=== PATIENT | male | born 1990 | race American Indian/Alaskan Native ===

== ENCOUNTER 2021-10-23 18:06 | Emergency (ER) | payer BC ==
--- NOTE | 2021-10-23 22:24 | XRay Report ---
RIGHT ANKLE 3 VIEW(S) INDICATION / CLINICAL INFORMATION: right ankle pain COMPARISON: None available. FINDINGS: BONES / JOINT(S): Oblique, minimally displaced fracture involving the distal fibula/lateral malleolus . Mild widening of the medial clear space which measures approximately 6 mm. No significant arthritis . SOFT TISSUES: Significant soft tissue swelling about the ankle joint, most prominently overlying the lateral malleolus. ADDITIONAL FINDINGS: None. Report dictated by: Yaakov Jackson MD Report dictated on: 10/23/2021 9:18 PM I have reviewed the images, agree with this report, and edited this report as needed. Signer Name: Yaakov Jackson MD Signed: 10/23/2021 10:20 PM Workstation Name: [id number]
[2021-10-23] MEDS ORDERED: HYDROcodone/ACETAMINOPHEN 5-325 MG TAB PO ONE (22:33)
--- NOTE | 2021-10-23 22:38 | Emergency Department Report ---
ED Lower Extremity HPI - General Chief Complaint: Extremity Injury, Lower Stated Complaint: ANKLE SPRAIN Time Seen by Provider: 10/23/21 22:29 Source: patient Mode of arrival: Ambulatory Limitations: No Limitations - History of Present Illness Initial Comments: right ankle pain styarted today , fell in the kitchen after spraying some lyson, twisted backwards no bleeding no wounds MD Complaint: ankle injury, fall -: Sudden, hour(s) Injury: Ankle: Right Type of Injury: hyperextension Place: home Severity scale (0 -10): 7 Improves With: nothing, immobilization Worsens With: weight bearing, movement Context: fall - Related Data Allergies Allergy/AdvReac Type Severity Reaction Status Date / Time Penicillins Allergy Rash Verified 10/23/21 21:43 ED Review of Systems ROS: Stated complaint: ANKLE SPRAIN Other details as noted in HPI Constitutional: denies: chills, fever Eyes: denies: eye pain, eye discharge, vision change ENT: denies: ear pain, throat pain Respiratory: denies: cough, shortness of breath, wheezing Cardiovascular: denies: chest pain, palpitations Endocrine: no symptoms reported Gastrointestinal: denies: abdominal pain, nausea, diarrhea Genitourinary: denies: urgency, dysuria Musculoskeletal: denies: back pain, joint swelling, arthralgia Skin: denies: rash, lesions Neurological: denies: headache, weakness, paresthesias Psychiatric: denies: anxiety, depression Hematological/Lymphatic: denies: easy bleeding, easy bruising ED Past Medical Hx - Past Medical History Previous Medical History?: Yes Hx Asthma: Yes - Surgical History Past Surgical History?: No - Social History Smoking Status: Never Smoker Substance Use Type: None ED Physical Exam - General Limitations: No Limitations General appearance: alert, in no apparent distress - Head Head exam: Present: atraumatic, normocephalic - Eye Eye exam: Present: normal appearance - ENT ENT exam: Present: mucous membranes moist - Neck Neck exam: Present: normal inspection - Respiratory Respiratory exam: Present: normal lung sounds bilaterally. Absent: respiratory distress - Cardiovascular Cardiovascular Exam: Present: regular rate, normal rhythm. Absent: systolic murmur, diastolic murmur, rubs, gallop - GI/Abdominal GI/Abdominal exam: Present: soft, normal bowel sounds - Rectal Rectal exam: Present: deferred - Extremities Exam Extremities exam: Present: normal inspection - Expanded Lower Extremity Exam Right Ankle exam: Present: tenderness, swelling, deformity - Back Exam Back exam: Present: normal inspection - Neurological Exam Neurological exam: Present: alert, oriented X3 - Psychiatric Psychiatric exam: Present: normal affect, normal mood - Skin Skin exam: Present: warm, dry, intact, normal color. Absent: rash ED Course Vital Signs 10/23/21 19:38 Temperature 99.3 F Pulse Rate 105 H Respiratory 18 Rate Blood Pressure 150/104 O2 Sat by Pulse 98 Oximetry ED Lower Extremity MDM - Radiology Data Radiology results: report reviewed, image reviewed - Medical Decision Making fracture noted splinted , intact vascualrity crutches and ortho referral Critical care attestation.: If time is entered above; I have spent that time in minutes in the direct care of this critically ill patient, excluding procedure time. ED Disposition Clinical Impression: Closed right ankle fracture Disposition: HOME / SELF CARE / HOMELESS Is pt being admited?: No Does the pt Need Aspirin: No Condition: Stable Instructions: Nondisplaced Fibular Ankle Fracture Treated With Immobilization, Adult Referrals: FOSTER KILPATRICK MD [Staff Physician] - 3-5 Days Time of Disposition: 22:36
[2021-10-24 00:19] VITALS: BP 140/80
== END 2021-10-23 23:40 | disposition home or self-care (01) ==
LOC: ED 18:06
DX: S82.891A Other fracture of right lower leg, initial encounter for closed fracture (principal); Z88.0 Allergy status to penicillin; X58.XXXA Exposure to other specified factors, initial encounter; Y93.89 Activity, other specified; Y92.89 Other specified places as the place of occurrence of the external cause; Y99.8 Other external cause status
CPT/HCPCS: 99283